=== PATIENT | male | born 1985 | race Caucasian/White ===

== ENCOUNTER 2020-07-01 21:44 | Emergency (ER) | payer OTHER ==
[2020-07-01] MEDS ORDERED: AUGMENTIN 875-1 EACH PO (23:52)
[2020-07-01] MEDS ORDERED: IBUPROFEN600 MG PO (23:52)
== END 2020-07-02 00:39 | disposition home or self-care (01) ==
LOC: ER1 21:44
DX: S61.412A Laceration without foreign body of left hand, initial encounter (principal); S51.812A Laceration without foreign body of left forearm, initial encounter; Z23 Encounter for immunization; W54.0XXA Bitten by dog, initial encounter; Y92.009 Unspecified place in unspecified non-institutional (private) residence as the place of occurrence of the external cause
CPT/HCPCS: 12002; 90471; 90714; 96372; 99283; J0690

== ENCOUNTER 2020-08-22 14:48 | Emergency (ER) | payer OTHER ==
[~2020-08-22 14:48] MED LIST: AUGMENTIN 875-1 EACH PO; IBUPROFEN600 MG PO
[2020-08-22 15:46] LABS: HEMOGLOBIN 12.5 gm/dl (14.0-17.5); RED BLOOD COUNT 3.75 M/UL (4.20-5.50); WHITE BLOOD COUNT 7.7 K/UL (4.5-11.0)
== END 2020-08-22 20:30 | disposition short-term general hospital (02) ==
LOC: ER1 14:48
PROVIDERS: Preventive Medicine Occupational Medicine
DX: F10.239 Alcohol dependence with withdrawal, unspecified (principal); N39.0 Urinary tract infection, site not specified; F17.210 Nicotine dependence, cigarettes, uncomplicated; Z20.822 Contact with and (suspected) exposure to COVID-19
CPT/HCPCS: 0240U; 70450; 71045; 80307; 81001; 82009; 82550; 82553; 82803; 83605; 83690; 83874; 83880; 84439; 84443; 84484; 85025; 85652; 86140; 87086; 93005; 96374; 96375; 99285; G0480; J0696; J2060; J2310; J3411; J3475; J7030